=== PATIENT | female | born 1975 | race Caucasian/White ===

== ENCOUNTER → 2017-11-06 | Outpatient (CLI) | payer OTHER ==
--- NOTE | 2017-11-06 14:34 | REP ---
Whole body radionuclide bone scan: The study is performed with 21.4 mCi of technetium 99m labeled MDP. There is a degenerative pattern of uptake in the shoulders. There is artifactual uptake in the left antecubital fossa from slight amount of extravasation. There is a focal area of uptake in the left forearm of uncertain significance. This is partially excluded at the film margin. This could be artifact from extravasation a few droplets of radiotracer and could be actual uptake in the forearm. Consider plain films of the left forearm for follow up. Uptakes are through the skeletal structures is unremarkable. Impression: Questionable uptake in the left four a versus artifact from extravasation or contamination. Artifactual uptake in the left antecubital fossa of extravasation. Otherwise, negative radionuclide bone scan. Signed by Billy Brito MD 11/06/2017 02:25 P
== END ==
LOC: M RAD 08:03
PROVIDERS: ATTEND Family Medicine
DX: M54.2 Cervicalgia (principal); M41.34 Thoracogenic scoliosis, thoracic region; Q76.49 Other congenital malformations of spine, not associated with scoliosis
CPT/HCPCS: 78306; A9503

== ENCOUNTER 2022-01-28 03:47 | Emergency (ER) | payer OTHER ==
[~2022-01-28] VITALS: Ht 167.6 cm; Wt 81.8 kg
[2022-01-28 03:47] VITALS: BP 127/62
[2022-01-28] MEDS ORDERED: LIDOCAINE 1% MDV 20ML VIAL SC ONE (06:45)
[2022-01-28] MEDS ORDERED: DERMABOND TOPICAL SKIN ADHESIVE TOP ONE (06:55)
[2022-01-28] MEDS ORDERED: NEOSPORIN OINT 0.9 GM PKT TOP ONE (07:25)
== END 2022-01-28 07:56 | disposition home or self-care (01) ==
LOC: M ED 03:47
DX: S61.411A Laceration without foreign body of right hand, initial encounter (principal); S61.210A Laceration without foreign body of right index finger without damage to nail, initial encounter; W26.0XXA Contact with knife, initial encounter; Y92.89 Other specified places as the place of occurrence of the external cause; Y93.89 Activity, other specified; Y99.8 Other external cause status; Z88.1 Allergy status to other antibiotic agents; Z88.2 Allergy status to sulfonamides; Z88.8 Allergy status to other drugs, medicaments and biological substances

== ENCOUNTER 2025-01-19 22:43 | Emergency (ER) | payer OTHER ==
[~2025-01-19] VITALS: Ht 167.6 cm; Wt 90.8 kg
[2025-01-19 22:51] VITALS: BP 141/89; TEMP 96.9; O2SAT 97
== END 2025-01-19 23:53 | disposition left against medical advice (07) ==
LOC: M ED 22:43
DX: Z53.21 Procedure and treatment not carried out due to patient leaving prior to being seen by health care provider (principal)

== ENCOUNTER → 2025-03-17 | Outpatient (CLI) | payer OTHER | LOC: M PLAIMG 07:05 | PROVIDERS: ATTEND Physician Assistant | DX: S83.411D Sprain of medial collateral ligament of right knee, subsequent encounter (principal) ==